=== PATIENT | male | born 1940 | race Caucasian/White ===

== ENCOUNTER → 2022-07-22 | Outpatient (CLI) | payer OTHER ==
[~2022-07-22] MED LIST: GADOTERATE MEGLUMINE 10 MMOL/20 ML VIAL IV ONE
== END | disposition home or self-care (01) ==
LOC: RAH 14:56
PROVIDERS: ATTEND Otolaryngology Plastic Surgery within the Head & Neck
DX: H90.3 Sensorineural hearing loss, bilateral (principal)
CPT/HCPCS: 70553; A9575

== ENCOUNTER → 2023-04-19 | Outpatient (CLI) | payer OTHER ==
[~2023-04-19] MED LIST changes: +AMLO-258 PO; +DORZ10DR10 OP; +FLU15OS OP; +GABA-529 PO; -GADOTERATE MEGLUMINE 10 MMOL/20 ML VIAL IV ONE; +MELO-108 PO; +OMEP-420 PO; +ROPI1TAB46 PO; +VITA-348 PO
== END | disposition home or self-care (01) ==
LOC: SHCH 09:54
PROVIDERS: ATTEND Student in an Organized Health Care Education/Training Program
DX: E78.5 Hyperlipidemia, unspecified (principal); Z48.812 Encounter for surgical aftercare following surgery on the circulatory system
CPT/HCPCS: 93306

== ENCOUNTER → 2023-12-13 | Outpatient (CLI) | payer OTHER ==
[2023-12-13 16:32] LABS: ALBUMIN 3.5 g/dL (3.5-5.0); BILIRUBIN,TOTAL 0.7 mg/dL (0.2-1.0); CREATININE 1.2 mg/dL (0.5-1.3); POTASSIUM 4.5 mmol/L (3.5-5.1); TOTAL PROTEIN, SERUM 7.5 g/dL (6.0-8.3)
== END | disposition home or self-care (01) ==
LOC: LAB 14:46
PROVIDERS: ATTEND Student in an Organized Health Care Education/Training Program
DX: R06.02 Shortness of breath (principal)
CPT/HCPCS: 36415; 80053

== ENCOUNTER → 2023-12-17 | Outpatient (CLI) | payer OTHER ==
[~2023-12-17] MED LIST changes: +IOHEXOL 350 MG/ML 100ML INFUS..BTL IV ONE; +METOPROLOL TARTRATE 1 MG/ML 5ML VIAL IV ONE
== END | disposition home or self-care (01) ==
LOC: RAH 07:30
PROVIDERS: ATTEND Student in an Organized Health Care Education/Training Program
DX: R06.02 Shortness of breath (principal)
CPT/HCPCS: 75574; J3490; Q9967 ×2

== ENCOUNTER 2024-03-06 05:55 | Day surgery (SDC) | payer OTHER ==
[2024-03-02 11:08] LABS: BASOPHILS # (AUTO) 0.11 K/uL (0.00-0.20); BASOPHILS % (AUTO) 1.2 % (0.0-5.0); EOSINOPHILS # (AUTO) 0.72 K/uL (0.00-0.70); EOSINOPHILS % (AUTO) 7.6 % (0.0-8.0); HEMATOCRIT 45.3 % (42-54); LYMPHOCYTES # (AUTO) 1.8 K/uL (1.0-4.8); LYMPHOCYTES % (AUTO) 18.7 % (21.0-51.0); MEAN CORPUSCULAR HEMOGLOBIN 24.6 pg (27.0-33.0); MEAN CORPUSCULAR HGB CONC 30.5 g/dL (32.0-36.0); MEAN CORPUSCULAR VOLUME 80.7 fL (79-99); MONOCYTES % (AUTO) 10.1 % (3.0-13.0); NEUTROPHILS # (AUTO) 5.8 K/uL (1.8-7.7); NEUTROPHILS % (AUTO) 61.3 % (40.0-77.0); PLATELET COUNT (AUTO) 280 K/uL (130-400); RED BLOOD CELL COUNT(AUTO) 5.61 MIL/uL (4.50-6.20); RED CELL DISTRIBUTION WIDTH 15.3 % (11.0-15.5); WHITE BLOOD COUNT (AUTO) 9.5 K/uL (4.8-10.8)
[2024-03-02 11:09] VITALS: BP 113/64; PULSE 59; RESP 15; TEMP 97.5
[2024-03-02 11:22] LABS: CREATININE 1.4 mg/dL (0.5-1.3); POTASSIUM 4.9 mmol/L (3.5-5.1)
[2024-03-02 12:20] LABS: B-TYPE NATRIURETIC PEPTIDE 22 pg/mL (0-100)
[2024-03-02 12:23] LABS: INR 1.02 (0.85-1.15)
[2024-03-02 12:24] LABS: PARTIAL THROMBOPLASTIN TIME 27.9 SEC (26.3-35.5)
[~2024-03-06] VITALS: Ht 182.9 cm; Wt 92.0 kg
[2024-03-06] VITALS (10 sets, daily range): BP systolic 123–147; BP diastolic 46–74; PULSE 6–72; RESP 12–19; TEMP 97.3–97.6
[~2024-03-06 05:55] MED LIST changes: +AEC81 PO; -AMLO-258 PO; -IOHEXOL 350 MG/ML 100ML INFUS..BTL IV ONE; -MELO-108 PO; -METOPROLOL TARTRATE 1 MG/ML 5ML VIAL IV ONE; -VITA-348 PO
[2024-03-06] MEDS: 0.9%NACL 1000ML 1,000 ML IV ONE (06:36)
[2024-03-06 06:51] LABS: APPEARANCE,URINE CLEAR (CLEAR); BILIRUBIN,URINE NEGATIVE (NEGATIVE); COLOR,URINE LIGHT-YELLOW (YELLOW); GLUCOSE, URINE (UA) NEGATIVE (NEGATIVE); KETONES,URINE NEGATIVE (NEGATIVE); LEUKOCYTE ESTERASE ,URINE 250 Leu/uL (NEGATIVE); NITRATE,URINE 2+ (NEGATIVE); OCCULT BLOOD,URINE NEGATIVE (NEGATIVE); PH,URINE 5.5 (5.0-8.0); PROTEIN,URINE NEGATIVE (NEGATIVE); UROBILINOGEN,URINE 0.2 mg/dL (0.2-1.0)
[2024-03-06 06:52] LABS: ADD UA MICROSCOPIC YES
[2024-03-06 07:03] LABS: BACTERIA,URINE RARE /HPF (None Seen); MUCUS,URINE RARE LPF (None Seen); RBC,URINE 0-1 /HPF (0-1)
[2024-03-06] MEDS ORDERED: VERAPAMIL HCL 2.5 MG/ML VIAL ONE (07:07)
[2024-03-06] MEDS ORDERED: HEParin-NS 1,000 UNIT/500 ML 1,000 ML IV ONE (07:07)
[2024-03-06] MEDS ORDERED: IOHEXOL 350 MG/ML 100ML INFUS..BTL IV ONE ×2 (07:07→08:27)
[2024-03-06] MEDS ORDERED: HEParin 10,000 UNIT/10ML (1,000 UNIT/ML) VIAL ONE (07:07)
[2024-03-06] MEDS ORDERED: LIDOCAINE HCL 400MG/20ML VIAL ONE (07:07)
[2024-03-06] MEDS ORDERED: NITROGLYCERIN 50MG VIAL ONE (07:08)
[2024-03-06] MEDS ORDERED: MIDAZOLAM HCL 1 MG/ML 2ML VIAL ONE ×2 (07:32→07:49)
[2024-03-06] MEDS ORDERED: FENTanyl CITRate PF 50 MCG/1 ML 2ML VIAL ONE (07:32)
[2024-03-06] MEDS ORDERED: IOHEXOL-350 50ML VIAL IV ONE (08:49)
[2024-03-06] MEDS: 0.9%NACL 1000ML 1,000 ML IV SCH (08:55)
[2024-03-06] MEDS ORDERED: DEXTROSE 50%-WATER 50 ML DISP.SYRIN IV PRN (09:00)
[2024-03-06] MEDS ORDERED: GLUCAGON 1MG KIT 1 MG ML IM PRN (09:00)
== END 2024-03-06 13:00 | disposition home or self-care (01) ==
LOC: DAH 05:55
PROVIDERS: ATTEND Student in an Organized Health Care Education/Training Program
DX: R06.02 Shortness of breath (principal); I25.118 Atherosclerotic heart disease of native coronary artery with other forms of angina pectoris; I25.82 Chronic total occlusion of coronary artery; R93.1 Abnormal findings on diagnostic imaging of heart and coronary circulation; I25.2 Old myocardial infarction; E78.5 Hyperlipidemia, unspecified; I11.0 Hypertensive heart disease with heart failure; I50.20 Unspecified systolic (congestive) heart failure; M79.10 Myalgia, unspecified site; Z95.1 Presence of aortocoronary bypass graft; Z79.01 Long term (current) use of anticoagulants; Z79.82 Long term (current) use of aspirin; Z79.899 Other long term (current) drug therapy
CPT/HCPCS: 80048; 83880; 85025; 85610; 85730; 36415; 71045; 93005; 93459; 87086 ×2; 87186; 81001; C1887 ×3; C1769 ×3; A4649; C1894; J3010; J3490 ×3; J7030; J1644 ×2; J2250; Q9967 ×3; A4215; A4222; A6260; A4221; A4663; A4216; A6206; A4606; Q9965 ×3; A4223 ×3; 96360; 96361; 99156; 99157

== ENCOUNTER → 2024-03-14 | Outpatient (CLI) | payer OTHER ==
[2024-03-14 16:40] LABS: ALBUMIN 3.8 g/dL (3.5-5.0); BILIRUBIN,TOTAL 0.5 mg/dL (0.2-1.0); CREATININE 1.3 mg/dL (0.5-1.3); POTASSIUM 4.7 mmol/L (3.5-5.1); TOTAL PROTEIN, SERUM 7.3 g/dL (6.0-8.3)
== END | disposition home or self-care (01) ==
LOC: LAB 14:42
PROVIDERS: ATTEND Student in an Organized Health Care Education/Training Program
DX: Z95.1 Presence of aortocoronary bypass graft (principal)
CPT/HCPCS: 36415; 80053